=== PATIENT | female | born 2000 | race Hispanic/Latino ===

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

== ENCOUNTER 2020-04-07 01:32 | Outpatient (CLI) | payer OTHER ==
[2020-04-07 18:40] LABS: SARS-CoV-2 MS2 Positive; SARS-CoV-2 N Gene Negative; SARS-CoV-2 S Gene Negative; SARS-CoV-2 orf1ab Negative
== END 2020-04-07 01:33 | disposition home or self-care (01) ==
LOC: ERS 01:32
PROVIDERS: ATTEND Obstetrics & Gynecology
DX: Z20.828 Contact with and (suspected) exposure to other viral communicable diseases (principal)
CPT/HCPCS: 87635; U0003

== ENCOUNTER 2020-04-09 01:13 | Inpatient (IN) | payer OTHER ==
--- NOTE | 2020-04-09 01:10 | PDOC.LDHP ---
Labor and Delivery H&P Chief complaint: scheduled induction HPI: 19 y/o at 27 weeks and 6 days, for medical term induction for Gest. HTN. Current gestational age (weeks): 37 Due date: 04/24/20 Grav: 1 Para: 0 Current complications: gestational diabetes Abnormal US findings: No Current medications: pre-lux vitamins Social history: none - Physical Exam Vital signs reviewed and normal: yes General: NAD, resting Heart: RRR Lungs: CTAB Abdomen: gravid Extremeties: no edema FHT: category 1 - Assessment L&D Assessment: medically indicated induction - Plan Plan: admit to L&D, cervical ripening
[~2020-04-09 01:13] MED LIST: Acetaminophen 500 MG TAB PO PRN; Butorphanol Tartrate 1 MG/ML VIAL SLOW IVP PRN; Carboprost 250 MCG/ML AMP IM PRN; Diphenoxylate HCl/Atropine Tablet PO PRN; Docusate 100 MG CAP PO PRN; HYDROcodone/Acetaminophen 5/325 mg Tablet PO PRN; Ibuprofen 800 MG TAB PO PRN; Lidocaine 1% (PF) 30 ML VIAL SC PRN; Misoprostol 200 MCG TAB PR PRN; NS / Oxytocin 40 units/1000ml 1,000 ML IV PRN; Ondansetron PF 4 MG/2 ML Vial IVP PRN; Promethazine HCl 25 MG/ML VIAL IM PRN; hydrALAZINE 20 MG/ML VIAL SLOW IVP PRN
[2020-04-09] MEDS: Lactated Ringer's 1,000 ML IV SCH ×3 (01:55→04:07)
[2020-04-09 02:05] VITALS: BMI 24.4
[2020-04-09] MEDS ORDERED: Fentanyl 4 mcg/Bup 0.1% Cadd 100 ML ONE (02:09)
[2020-04-09 02:19] LABS: Hemoglobin 11.2 g/dL (12.0-16.0); Mean Corpuscular HGB CONC 34.2 g/dL (32.0-36.0); Mean Corpuscular Hemoglobin 28.5 pg (25.0-35.0); Mean Corpuscular Volume 83.4 fL (78.0-98.0); Mean Platelet Volume 8.6 fL (7.4-10.4); Platelet Count 217 thou/uL (130-400); RBC Distribution Width 13.2 % (11.5-14.5); Red Blood Cell (RBC) Count 3.94 mill/uL (4.00-5.20)
[2020-04-09] MEDS ORDERED: NS w/ Oxytocin 10 units 500 ML IV SCH ×2 (02:30)
[2020-04-09 02:46] LABS: HBSAg Index 0.16 S/CO (0-0.99); Hep B Surf Ag Non-Reactive S/CO (NonReactive)
[2020-04-09] MEDS ORDERED: diphenhydrAMINE 50 MG/ML VIAL IVP PRN (03:43)
[2020-04-09] MEDS ORDERED: Acetaminophen 325 MG TAB PO PRN (03:43)
[2020-04-09] MEDS ORDERED: Promethazine HCl 25 MG/ML VIAL IM PRN ×2 (03:43→07:06)
[2020-04-09] MEDS ORDERED: Ondansetron PF 4 MG/2 ML Vial IVP PRN ×2 (03:43→07:06)
[2020-04-09] MEDS ORDERED: Lactated Ringer's 500 ML IV PRN (03:43)
[2020-04-09] MEDS ORDERED: Naloxone HCl 0.4 mg/ml Vial IVP PRN ×2 (03:43)
[2020-04-09] MEDS ORDERED: EPHEDRINE 25 MG/5 ML SYRINGE SLOW IVP PRN (03:43)
[2020-04-09] MEDS ORDERED: Communication Order-Pharmacy FS SCH (03:45)
[2020-04-09] MEDS ORDERED: Fentanyl 4 mcg/Bupivacaine 0.1% Cassette 100 ML EPIDURAL SCH (03:45)
[2020-04-09] MEDS ORDERED: Terbutaline Sulfate 1 MG/ML VIAL SC SCH (04:00)
[2020-04-09 04:14] LABS: Syphilis Antibody Nonreactive (Nonreactive); Syphilis Antibody Index 0.04 S/CO (<1.00 Non-Reactive)
[2020-04-09] MEDS ORDERED: Zolpidem Tartrate 5 MG TAB PO PRN (07:06)
[2020-04-09] MEDS ORDERED: diphenhydrAMINE 25 MG CAP PO PRN (07:06)
[2020-04-09] MEDS ORDERED: Bisacodyl 10 MG SUPP PR PRN (07:06)
[2020-04-09] MEDS ORDERED: Measles/Mumps/Rubella 10 MCG/0.5 ML VIAL SC ONE (07:06)
[2020-04-09] MEDS ORDERED: Lanolin Ointment 7 GM TUBE TOP PRN (07:06)
[2020-04-09] MEDS ORDERED: Milk Of Magnesia 30 ML UDCUP PO PRN (07:06)
[2020-04-09] MEDS ORDERED: HYDROcodone/Acetaminophen 5/325 mg Tablet PO PRN ×2 (07:06)
[2020-04-09] MEDS ORDERED: Adacel (T-DAP) 0.5 ML SYRINGE IM ONE (07:06)
[2020-04-09] MEDS ORDERED: NS / Oxytocin 40 units/1000ml 1,000 ML IV SCH (07:06)
[2020-04-09] MEDS ORDERED: hydrALAZINE 20 MG/ML VIAL SLOW IVP PRN (07:06)
[2020-04-09] MEDS ORDERED: Benzocaine-Menthol 82.5 ML CAN TOP PRN (07:06)
[2020-04-09] MEDS ORDERED: Varicella virus, LIVE 0.5 ML VIAL SC ONE (07:06)
[2020-04-09] MEDS ORDERED: Preparation H Ointment 28 GM TUBE PR PRN (07:06)
[2020-04-09] MEDS ORDERED: Bupivacaine/Epinephrine 0.25% 30 ML VIAL ONE (10:26)
[2020-04-09] MEDS ORDERED: Terbutaline Sulfate 1 MG/ML VIAL ONE (10:26)
[2020-04-09] MEDS: Ibuprofen 800 MG TAB PO SCH ×2 (12:47→14:49)
[2020-04-09] MEDS: Docusate Calcium (SURFAK) 240 MG CAP PO SCH ×2 (12:48→21:39)
[2020-04-09] MEDS: Ferrous Sulfate 325 MG TAB PO SCH ×2 (12:48→16:56)
[2020-04-10] MEDS: Ibuprofen 800 MG TAB PO SCH ×3 (00:08→16:53)
[2020-04-10 06:40] LABS: #Eosinphils 0.2 thou/uL (0.0-0.7); #Lymphocytes 2.2 thou/uL (1.20-3.40); #Monocytes 0.8 thou/uL (0.11-0.59); #Neutrophils 5.6 thou/uL (1.40-6.50); %Basophils 0.5 % (0.0-1.0); %Eosinophils 2.4 % (0.0-10.0); %Lymphocytes 25.4 % (28.0-48.0); %Monocytes 8.7 % (0.0-4.0); Hemoglobin 8.9 g/dL (12.0-16.0); Mean Corpuscular HGB CONC 32.8 g/dL (32.0-36.0); Mean Corpuscular Volume 85.5 fL (78.0-98.0); Platelet Count 181 thou/uL (130-400); RBC Distribution Width 13.1 % (11.5-14.5); Red Blood Cell (RBC) Count 3.18 mill/uL (4.00-5.20); White Blood Cell (WBC) Count 8.8 thou/uL (4.8-10.8)
[2020-04-10] MEDS: Ferrous Sulfate 325 MG TAB PO SCH ×2 (09:05→16:53)
[2020-04-10] MEDS: Docusate Calcium (SURFAK) 240 MG CAP PO SCH (09:05)
--- NOTE | 2020-04-10 16:10 | PDOC.PP ---
Post Progress Note Post Day #: 1 PO intake tolerated: yes Flatus: yes Ambulation: yes Vital Signs (12 hours) Temp Pulse Resp BP Pulse Ox 04/10/20 09:05 99 04/10/20 07:04 98.1 F 68 12 95/53 L 99 Weight Weight 147 lb - Physical Examination General: NAD Cardiovascular: no m/r/g, RRR Respiratory: clear to auscultation bilaterally, non-labored breathing Abdominal: + bowel sounds, lochia, no distention, appropriately TTP Extremities: negative homans (B) Skin: CS incision dry & intact, no rash Neurological: no gross focal deficits Psychiatric: A&Ox3, normal affect Result Diagrams: 04/10/20 06:23 Additional Labs: Post Labs Blood Type A POSITIVE 04/09/20 03:55 Hep Bs Antigen Non-Reactive S/CO (NonReactive) 04/09/20 01:57
[2020-04-10 16:26] VITALS: BP 122/81; TEMP 98.7
--- NOTE | 2020-04-10 23:44 | DN ---
DATE OF PROCEDURE: 04/09/2020 TIME: At 4:35 [place] Day[employer] Savings Time. PREOPERATIVE DIAGNOSIS: Intrauterine at 38 weeks with spontaneous onset of labor and spontaneous rupture of membranes. POSTOPERATIVE DIAGNOSIS: Intrauterine at 38 weeks with spontaneous onset of labor and spontaneous rupture of membranes. PROCEDURE: Spontaneous vaginal delivery over first-degree laceration of the perineum. FINDINGS: Viable male weighing 2720 g or 6 pounds 0 ounce, Apgars nine and nine. QUANTITATIVE BLOOD LOSS: 547 mL. COMPLICATIONS: None. PROCEDURE IN DETAIL: The patient presented to [facility] where she was admitted to the labor and delivery service. The patient underwent a normal and uneventful labor with normal cervical dilatation until she was found to be completely dilated. She was then allowed to push and was able to bring the baby down and delivered the baby in a vertex presentation without difficulties. Once the head delivered in occiput anterior position, the shoulders followed spontaneously along with the rest of the baby's body. Once out the baby's mouth and nose were bulb suctioned. The cord was clamped and cut and baby was handed to waiting attendants. Cord blood was collected. Gentle fundal massage was performed and the placenta delivered intact without problems. Hemostasis was assured. Quantitative blood loss was calculated. Inspection of the cervix, vaginal vault, and perineum did not reveal any lacerations needing suturing. Once again, hemostasis was within normal limits and the patient was allowed to recover in the labor and delivery room. Baby went to nursery. Job ID: [id number]
== END 2020-04-10 18:15 | disposition home or self-care (01) | DRG 807 ==
LOC: L&D 01:13 → 3SW 11:02
PROVIDERS: ADMIT Obstetrics & Gynecology; ATTEND Obstetrics & Gynecology
PROC: 10E0XZZ Delivery of Products of Conception, External Approach (ICD-10-PCS; principal; 2020-04-09)
PROC: 3E0P7VZ Introduction of Hormone into Female Reproductive, Via Natural or Artificial Opening (ICD-10-PCS; 2020-04-09)
PROC: 0HQ9XZZ Repair Perineum Skin, External Approach (ICD-10-PCS; 2020-04-09)
DX: O13.4 Gestational [pregnancy-induced] hypertension without significant proteinuria, complicating childbirth (principal); Z37.0 Single live birth; Z3A.37 37 weeks gestation of pregnancy; O24.429 Gestational diabetes mellitus in childbirth, unspecified control; O70.0 First degree perineal laceration during delivery
CPT/HCPCS: 36415; 51702; 85025; 85027; 86780; 86850; 86900; 86901; 87340; 90715; 99285; J3105